=== PATIENT | male | born 2000 | race Caucasian/White ===

== ENCOUNTER → 2020-09-20 | Outpatient (CLI) | payer OTHER ==
--- NOTE | 2020-09-20 12:00 | CT ---
EXAMINATION TYPE: CT iac wo con DATE OF EXAM: 09/20/2020 COMPARISON: None HISTORY: Hearing Loss CT DLP: 150 mGycm. Automated Exposure Control for Dose Reduction was Utilized. TECHNIQUE: CT scan of internal auditory canal is performed without contrast, thin cut axial images ar e obtained, coronal reformatted images are also reviewed. FINDINGS: Mastoid air cells are underpneumatized. The mastoid air cells on the left are aerated. The mastoid air cells on the right are opacified. There is also fluid within the middle ear on the right. Incus and malleus have normal orientation bilaterally. External auditory canals are patent bilaterall y. The scutum are normal. Cochlea are normal. Semicircular canals are normal. Internal auditory canal s are normal without expansion or erosion. Cerebellar pontine angles appear normal. Paranasal sinuses within the [id number] are clear. IMPRESSION: 1. Clinical correlation recommended for right mastoiditis. 2. Right middle ear fluid. Correlate for right otitis media.
== END | disposition home or self-care (01) ==
LOC: RADCTMAIN 09:05
PROVIDERS: ATTEND Otolaryngology
DX: H74.8X1 Other specified disorders of right middle ear and mastoid (principal)
CPT/HCPCS: 70480